=== PATIENT | male | born 1995 ===

== ENCOUNTER 2018-08-08 00:21 | Emergency (ER) | payer OTHER, BC ==
[2018-08-08 00:36] VITALS: BP 113/74; PULSE 80; RESP 18; TEMP 98.1; O2SAT 99
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
== END 2018-08-08 01:33 | disposition home or self-care (01) ==
LOC: H.ER 00:21
DX: S59.901A Unspecified injury of right elbow, initial encounter (principal); S99.911A Unspecified injury of right ankle, initial encounter; J45.909 Unspecified asthma, uncomplicated; V13.4XXA Pedal cycle driver injured in collision with car, pick-up truck or van in traffic accident, initial encounter; Y93.55 Activity, bike riding

== ENCOUNTER 2018-08-25 18:28 | Emergency (ER) | payer BC, OTHER ==
[2018-08-25 19:03] VITALS: BP 114/72; PULSE 85; RESP 18; TEMP 98.5; O2SAT 98
== END 2018-08-25 20:00 | disposition left against medical advice (07) ==
LOC: H.ER 18:28
DX: Z02.89 Encounter for other administrative examinations (principal)

== ENCOUNTER 2018-08-26 14:47 | Emergency (ER) | payer BC ==
[2018-08-26 15:32] VITALS: BP 108/71; PULSE 54; RESP 16; TEMP 98.1; O2SAT 99
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
== END 2018-08-26 16:21 | disposition home or self-care (01) ==
LOC: H.ER 14:47
DX: M54.5 Low back pain (principal); V13.4XXA Pedal cycle driver injured in collision with car, pick-up truck or van in traffic accident, initial encounter; Y93.55 Activity, bike riding; J45.909 Unspecified asthma, uncomplicated